=== PATIENT | female | born 2005 | race Caucasian/White ===

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

== ENCOUNTER 2024-06-17 21:25 | Emergency (ER) | payer BC, SELFPAY ==
[2024-06-17 21:47] VITALS: BP 138/88; PULSE 70; RESP 18; TEMP 36.8; O2SAT 100; BMI 18.0
[2024-06-17 21:50] VITALS: BP 136/75; PULSE 67; RESP 16; TEMP 37.1; O2SAT 99
[2024-06-17 22:29] VITALS: BP 120/76; PULSE 114; RESP 20; TEMP 36.8; O2SAT 98
[2024-06-18 00:10] VITALS: PULSE 85; O2SAT 98
--- NOTE | 2024-06-18 02:09 | ED_ITS ---
Discharge Plan Disposition Patient Disposition: Home, Self-Care Condition: Good Prescriptions Prescriptions: No Action No Known Home Medications Referrals Follow up/Referrals: Con Chang MD [Primary Care Provider] - See instructions (came to ER concerned for wax in ear, no cerumen impaction, no pain, discharged) Activity Restrictions/Add. Instructions Additional Instructions/Restrictions: You were evaluated in the ER and are appropriate for discharge at this time. Your ears do not have any active ongoing problems that require intervention at this time. If you feel it necessary to clean your ears, do not use Q-tips. 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 Make an appointment with your primary care doctor for reevaluation. Return to the ER with new, worsening, or otherwise concerning symptoms. Clinical Impressions Clinical Impression: Wax in ear Print Language Print Language: Bulgarian Discharge ED Provider: Evans Quiroga General Adult HPI General Chief complaint: Ear Stated complaint: ear ache Time Seen by Provider: 06/17/24 23:55 Mode of Arrival: Ambulatory Source of Information: Patient Limitations: No Limitations Description of Symptoms (Recalled from ER Triage Doc. by RN): Pt presents with c/o excess ear was in bilateral ears and decreased hearing History of Present Illness HPI narrative: 19-year-old female presents to the ER concerned that she has wax in her ears. She reports she attempted to clean them out with Q-tips and did not get any wax out so she came to the ER for evaluation. She does not have pain, she had initially reported that she was having decreased hearing but does not report this to me and actually denies it. She has no sore throat or runny nose, no fevers, chills, chest pain, difficulty breathing, or cough. She has no other associated symptoms or concerns. Related Data Home Medications ?Medication ?Instructions ?Recorded ?Confirmed No Known Home Medications 06/17/24 06/17/24 Allergies Allergy/AdvReac Type Severity Reaction Status Date / Time cefdinir Allergy Other Verified 06/17/24 22:33 [facility] Disclaimer: The information contained in this section may have been updated after the patient was seen, as this information can be updated by other users. Medical History (Updated 06/18/24 @ 00:13 by Satinder Bauer MD) No significant past medical history Social History Smoking Status: Current every day smoker alcohol intake: never current occupational status: student Travel in the last 8 weeks: None Have you lived/traveled outside [place] in past 30 days?: No Contact w/someone who lives/traveled outside [place] past 30 days?: No Exposure to someone with infectious disease in past 14 days?: No Do you have a fever (greater than 100.4 F or 38 C)?: No Have you tested positive for COVID-19: No Exposed to someone with COVID-19 in past 14 days?: No Do you have a sore throat?: No Do you have a cough?: No Do you have any weakness?: No Do you have any diarrhea?: No Are you experiencing any unusual bleeding?: No Do you have any muscle aches/pain?: No Do you have any abdominal pain?: No Are you experiencing loss of taste or smell?: No ROS Obtained: Yes Systems reviewed as appropriate & no additional complaints except as documented Per HPI Physical Exam General General appearance: alert and in no apparent distress Head Head exam: atraumatic and normocephalic Eye Eye exam: Present PERRL and EOMI ENT ENT exam: Present normal oropharynx, mucous membranes moist, TM's normal bilaterally and other (Bilateral ear canals have small amount of wax, however tympanic membranes are visualized bilaterally and are clear, normal, there is no wax against the eardrum, canals otherwise normal, no findings of otitis media or externa, no impacted cerumen no postauricular erythema, tenderness, or swelling) Neck Neck exam: Present normal inspection and full ROM Chest Chest inspection: Present symmetric chest wall rise Respiratory Respiratory exam: Absent respiratory distress or stridor Cardiovascular Cardiovascular exam: Present regular rate and normal rhythm Extremities Exam Extremities exam: Present full ROM Neurological Exam Neurological exam: Present alert, oriented X3 and normal gait; Absent motor sensory deficit Psychiatric Psychiatric exam: Present normal affect and normal mood Skin Skin exam: Present warm and dry Medical Decision Making Medical Records Screening: Per USPSTF and CDC recommendations, given the prevalence of disease in our region, it is our hospital?s policy to screen for HIV and viral Hepatitis for a ll patients aged 18 and over and those with ongoing risk factors. Manish Inquiry Pt receiving controlled substance: No Vital Signs: 06/17/24 21:47 06/17/24 21:50 06/17/24 22:29 Temperature 98.2 F 98.7 F 98.2 F Temperature Source Oral Oral Oral Pulse Rate 67 114 H Pulse Rate [Right] 70 Respiratory Rate 18 16 20 Blood Pressure 136/75 120/76 Blood Pressure [Right Arm] 138/88 Blood Pressure Mean [Right Arm] 104 Blood Pressure Source Automatic Cuff Automatic Cuff Blood Pressure Source [Right Arm] Automatic Cuff Blood Pressure Position Sitting Sitting Blood Pressure Position [Right Arm] Sitting 02 Sat by Pulse Oximetry 100 99 Oxygen Delivery Method Room Air Room Air Room Air 06/18/24 00:10 Temperature Temperature Source Pulse Rate 85 Pulse Rate [Right] Respiratory Rate Blood Pressure Blood Pressure [Right Arm] Blood Pressure Mean [Right Arm] Blood Pressure Source Blood Pressure Source [Right Arm] Blood Pressure Position Blood Pressure Position [Right Arm] 02 Sat by Pulse Oximetry 98 Oxygen Delivery Method Room Air Medical Decision Narrative: In summary, 19-year-old female who reports only being on daily control, no other daily medications, no known chronic medical conditions presents to the ER for concerns that she has wax in her ears that she was not able to remove with cotton swab. On initial evaluation patient hemodynamically stable, afebrile, overall well-appearing, bilateral tympanic membranes are easily visualized, she has small amount of wax in each external ear canal but no evidence of otitis externa, no evidence of otitis media, wax is not impacted or pressing on the eardrum. She has no pain, I do not believe she requires intervention or further workup at this time. I educated the patient on not using cotton swabs or other foreign bodies in the ear. I instructed her to follow-up with primary care doctor for reevaluation. 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 She is comfortable with this plan. Patient was given instructions on symptomatic management, follow up instructions, and return precautions for the emergency department. Patient indicated understanding and was discharged in stable condition. Critical Care Critical Care Time Critical Care Time: No
== END 2024-06-18 00:25 | disposition home or self-care (01) ==
PROVIDERS: Emergency Provider Emergency Medicine; PCP Family Medicine
DX: H92.03 Otalgia, bilateral (principal); H61.23 Impacted cerumen, bilateral; Z72.0 Tobacco use
CPT/HCPCS: 99281